=== PATIENT | female | born 1995 | race Hispanic/Latino ===

== ENCOUNTER 2017-07-04 13:43 | Inpatient (IN) | payer MEDICAID, OTHER ==
[~2017-07-04] VITALS: Ht 160 cm; Wt 74.8 kg
[2017-07-04] MEDS ORDERED: LACTATED RINGERS 1000ML 1,000 ML IV PRN (15:32)
[2017-07-04 15:43] LABS: HEMATOCRIT 36.2 % (36-48); MEAN CORPUSCULAR HEMOGLOBIN 27.4 pg (27.0-33.0); MEAN CORPUSCULAR HGB CONC 33.7 g/dL (32.0-36.0); MEAN CORPUSCULAR VOLUME 81.2 fL (80-100); PLATELET COUNT (AUTO) 212 K/uL (130-400); RED BLOOD CELL COUNT(AUTO) 4.45 MIL/uL (4.00-5.50); RED CELL DISTRIBUTION WIDTH 15.1 % (11.0-15.5)
[2017-07-04 15:44] LABS: APPEARANCE,URINE Cloudy (CLEAR); BILIRUBIN,URINE Negative (NEGATIVE); COLOR,URINE Dark Yellow (YELLOW); GLUCOSE, URINE (UA) Negative (NEGATIVE); KETONES,URINE Negative (NEGATIVE); LEUKOCYTE ESTERASE ,URINE Large (NEGATIVE); NITRATE,URINE Positive (NEGATIVE); OCCULT BLOOD,URINE Large (NEGATIVE); PH,URINE 6.5 (5.0-8.0); PROTEIN,URINE POS 2+ (NEGATIVE)
[2017-07-04] MEDS ORDERED: CLINDAMYCIN 600 MG/D5% WATER 50 ML IV ONE (15:44)
[2017-07-04] MEDS: CLINDAMYCIN 600 MG/D5% WATER 50 ML IVPB SCH ×2 (16:00→21:43)
[2017-07-04 16:16] LABS: BACTERIA,URINE Many /HPF (None Seen); RBC,URINE 51-100 /HPF (0-1); YEAST,URINE BUDDING None Seen /HPF (None Seen)
[2017-07-04 16:17] LABS: MUCUS,URINE None Seen LPF (None Seen); SQUAMOUS EPITHELIAL CELL,UR Few /HPF (0-2); TRICHOMONAS,URINE None Seen /LPF (None Seen)
[2017-07-05 01:27] LABS: CREATININE 0.8 mg/dL (0.5-1.5); INR 0.84 (0.85-1.15); PARTIAL THROMBOPLASTIN TIME 27.7 SEC (26.3-35.5); POTASSIUM 3.9 mmol/L (3.5-5.1); PROTHROMBIN TIME 8.9 SEC (9.6-11.6)
[2017-07-05 01:33] LABS: ALBUMIN 1.8 g/dL (3.5-5.0); BILIRUBIN,TOTAL 0.5 mg/dL (0.2-1.0); TOTAL PROTEIN, SERUM 6.7 g/dL (6.0-8.3); URIC ACID 5.3 mg/dL (2.6-7.2)
[2017-07-05] MEDS ORDERED: MAGNESIUM SULFATE 1,000 ML IV PRN (01:36)
[2017-07-05] MEDS ORDERED: LACTATED RINGERS 1000ML 1,000 ML IV SCH (01:36)
[2017-07-05] MEDS ORDERED: MAGNESIUM SULFATE 1,000 ML IV ONE (01:40)
[2017-07-05] MEDS ORDERED: MAGNESIUM 4GM PREMIX 100ML 100 ML IV ONE (01:40)
[2017-07-05] MEDS ORDERED: MAGNESIUM 4GM PREMIX 100ML 100 ML IV PRN (01:45)
[2017-07-05] MEDS ORDERED: CALCIUM GLUCONATE 1 GM/10 ML VIAL IVP PRN (01:45)
[2017-07-05] MEDS ORDERED: OXYTOCIN 10 USP UNITS/ML 20 UNIT in LACTATED RINGERS 1000ML 1,000 ML IV SCH (02:00)
[2017-07-05] MEDS ORDERED: PROMETHAZINE HCL 25 MG/ML 1ML AMPULE IM PRN (02:00)
[2017-07-05] MEDS ORDERED: LACTATED RINGERS 1000ML 1,000 ML IV ONE ×3 (02:14→18:53)
[2017-07-05] MEDS ORDERED: OXYTOCIN 10 USP UNITS/ML ONE ×3 (02:14→18:53)
[2017-07-05] MEDS ORDERED: BUTORPHANOL TARTRATE 2 MG/ML ONE (02:51)
[2017-07-05] MEDS: CLINDAMYCIN 600 MG/D5% WATER 50 ML IVPB SCH ×2 (04:04→12:28)
[2017-07-05] MEDS: BUTORPHANOL TARTRATE 2 MG/ML IVP PRN ×4 (08:18→14:50)
[2017-07-05] MEDS ORDERED: LANOLIN 30GM OINTMENT TP PRN (17:30)
[2017-07-05] MEDS ORDERED: MEASLES/MUMPS/RUBELLA VACCINE, LIVE 0.5 ML/VIAL SQ PRN (17:30)
[2017-07-05] MEDS ORDERED: WITCH HAZEL 1 PAD TP PRN (17:30)
[2017-07-05] MEDS ORDERED: ACETAMINOPHEN 325 MG TAB PO PRN (17:30)
[2017-07-05] MEDS ORDERED: DIPH,PERTUSS(ACELL),TET VAC/PF 0.5 ML VIAL IM PRN (17:30)
[2017-07-05] MEDS ORDERED: BENZOCAINE/LANOLIN/ALOE VERA 60 ML AEROSOL TP PRN (17:30)
[2017-07-05] MEDS: IBUPROFEN 600 MG TABLET PO PRN (19:31)
[2017-07-05 22:00] VITALS: BP 147/93
[2017-07-06 01:59] VITALS: BP 148/84
[2017-07-06 03:25] VITALS: BP 131/65
[2017-07-06 06:42] LABS: HEMATOCRIT 31.2 % (36-48); MEAN CORPUSCULAR HEMOGLOBIN 27.4 pg (27.0-33.0); MEAN CORPUSCULAR HGB CONC 33.5 g/dL (32.0-36.0); MEAN CORPUSCULAR VOLUME 81.8 fL (80-100); PLATELET COUNT (AUTO) 166 K/uL (130-400); RED BLOOD CELL COUNT(AUTO) 3.81 MIL/uL (4.00-5.50); RED CELL DISTRIBUTION WIDTH 14.5 % (11.0-15.5); WHITE BLOOD COUNT (AUTO) 21.2 K/uL (4.8-10.8)
[2017-07-06 07:58] VITALS: BP 141/89
[2017-07-06] MEDS: IBUPROFEN 600 MG TABLET PO PRN (10:11)
[2017-07-06 11:20] LABS: HEPATITIS Bs ANTIGEN SCREEN P Negative (Negative)
[2017-07-06 11:45] VITALS: BP 132/80
[2017-07-06 15:40] VITALS: BP 122/68
[2017-07-06 19:43] VITALS: BP 137/84
[2017-07-06] MEDS: CLINDAMYCIN 600 MG/D5% WATER 50 ML IVPB SCH (22:00)
[2017-07-07 00:53] VITALS: BP 137/82
[2017-07-07] MEDS: IBUPROFEN 600 MG TABLET PO PRN (03:51)
[2017-07-07] MEDS: CLINDAMYCIN 600 MG/D5% WATER 50 ML IVPB SCH (04:00)
[2017-07-07 04:58] VITALS: BP 138/86
[2017-07-07 07:25] VITALS: BP 125/72
[2017-07-07 11:55] VITALS: BP 131/85
[2017-07-07 15:33] VITALS: BP 147/89
== END 2017-07-07 18:30 | disposition home or self-care (01) | DRG 775 ==
LOC: EDBD 13:43 → LDH 13:43 → OBSVTOIN 15:32 → WSH 07-05 22:00 → LDH 07-06 00:18 → WSH 07-06 00:29
PROVIDERS: ADMIT Obstetrics & Gynecology; ATTEND Obstetrics & Gynecology
PROC: 0KQM0ZZ Repair Perineum Muscle, Open Approach (ICD-10-PCS; principal; 2017-07-05)
PROC: 10E0XZZ Delivery of Products of Conception, External Approach (ICD-10-PCS; 2017-07-05)
PROC: 3E0134Z Introduction of Serum, Toxoid and Vaccine into Subcutaneous Tissue, Percutaneous Approach (ICD-10-PCS; 2017-07-05)
PROC: 3E0234Z Introduction of Serum, Toxoid and Vaccine into Muscle, Percutaneous Approach (ICD-10-PCS; 2017-07-05)
DX: O69.81X0 Labor and delivery complicated by cord around neck, without compression, not applicable or unspecified (principal); O14.04 Mild to moderate pre-eclampsia, complicating childbirth; O70.1 Second degree perineal laceration during delivery; O99.824 Streptococcus B carrier state complicating childbirth; Z37.0 Single live birth; Z3A.39 39 weeks gestation of pregnancy; Z23 Encounter for immunization
CPT/HCPCS: 36415; 80053; 81001; 84550; 85027; 85384; 85610; 85730; 86592; 86850; 86900; 86901; 87340; 90715; A4314; A4606; G0378; J0595; J2590; J3475; J3490; J7120